=== PATIENT | male | born 1940 | race Caucasian/White ===

== ENCOUNTER 2017-01-25 20:39 | Inpatient (IN) | payer MEDICARE ==
[~2017-01-25] VITALS: Ht 177.8 cm; Wt 73.0 kg
[~2017-01-25 20:39] MED LIST: ASPI-496 PO; ASPI-621 PO; ATOR40TA PO; ATOR40TA78 PO; CLOP75TA22 PO; ETOMIDATE 40 MG/20 ML ONE; FAMO-79 PO; FAMO20TA7 PO; LEVO500T33 PO; NITR0.4T SL; NITR0.4T8 SL; PANT20TA2 PO; PANT40TA3 PO; PRED10TA PO; PRED20TA PO; PROPOFOL 10 MG/ML, 100ML IV ONE; RANI150T8 PO; SUCCINYLCHOLINE 20 MG/ML, 10ML ONE; TAMS-11 PO; VECURONIUM 10 MG ONE
[2017-01-25] MEDS ORDERED: SODIUM CHLORIDE 0.9% 1,000ML IVBOLUS ONE (21:00)
[2017-01-25] MEDS ORDERED: SODIUM CHLORIDE FLUSH 10ML SYR IVF ONE (21:00)
[2017-01-25] MEDS ORDERED: VECURONIUM 10 MG IVPush ONE (21:30)
[2017-01-25] MEDS ORDERED: PROPOFOL 100 ML IV PRN (21:30)
[2017-01-25] MEDS ORDERED: ETOMIDATE 20 MG/10 ML IVPush ONE (21:30)
[2017-01-25] MEDS ORDERED: CEFTRIAXONE PMX 1GM/50ML 50 ML IVPB ONE (21:30)
[2017-01-25] MEDS ORDERED: SUCCINYLCHOLINE 20 MG/ML, 10ML IVPush ONE (21:30)
[2017-01-25] MEDS ORDERED: AZITHROMYCIN 500 MG in SODIUM CHLORIDE 0.9% 250 ML IVPB ONE (21:30)
[2017-01-25] MEDS ORDERED: PLEASE ENTER HEIGHT AND WEIGHT MC SCH (21:30)
[2017-01-25] MEDS ORDERED: methylPREDNISolone SOD SUCC 125 MG/2 ML IVPush ONE (21:30)
[2017-01-25 21:46] LABS: ASPARTATE AMINO TRANSFERASE 21 U/L (15-37); BLOOD UREA NITROGEN 33 mg/dL (7-18)
[2017-01-25] MEDS ORDERED: CEFTRIAXONE PMX 1GM/50ML 50 ML ONE (21:47)
[2017-01-25 21:48] LABS: DIFF TOTAL CELLS COUNTED 100 CELL DIFF
[2017-01-25 21:51] LABS: IS PT STATUS REG ER OR PRE ER? YES
[2017-01-25 21:52] LABS: VERIFY COUNTS? YES
[2017-01-25] MEDS ORDERED: methylPREDNISolone SOD SUCC 125 MG/2 ML ONE (21:55)
[2017-01-25 22:26] LABS: ABG COLLECTION SITE LEFT RADIAL; COLLATERAL CIRCULATION TESTING NORMAL
[2017-01-25] MEDS ORDERED: DEXTROSE 50%, 50ML SYRINGE IVPush PRN (22:30)
[2017-01-25] MEDS ORDERED: SODIUM CHLORIDE 0.9%, 500ML IV ONE (22:30)
[2017-01-25] MEDS: ALBUTEROL/IPRATROPIUM 2.5MG/0.5MG, 3 ML INLINE SCH (22:30)
[2017-01-25] MEDS ORDERED: VASOPRESSIN 100 UNIT in SODIUM CHLORIDE 0.9% 495 ML IV PRN (22:30)
[2017-01-25] MEDS ORDERED: LIDOCAINE-MPF 1%, 2ML ENDO PRN (22:30)
[2017-01-25] MEDS ORDERED: GLUCAGON 1 MG IM PRN (22:30)
[2017-01-25] MEDS ORDERED: PHARMACY MAY ADJ FOR RENAL FX MC SCH (22:30)
[2017-01-25 22:52] VITALS: BP 113/68
[2017-01-25] MEDS ORDERED: PHARMACOKINETIC MONITORING MC PRN (23:00)
[2017-01-25] MEDS ORDERED: HEPARIN 5,000 UNITS/ML, 1ML SQ SCH (23:00)
[2017-01-25] MEDS ORDERED: VANCOMYCIN 1,600 MG in SODIUM CHLORIDE 0.9% 250 ML IV ONE (23:00)
[2017-01-25] MEDS ORDERED: VANCOMYCIN PER PHARMACY MC PRN (23:00)
[2017-01-26] MEDS: NOREPINEPHRINE 4 MG in SODIUM CHLORIDE 0.9% 246 ML IV PRN ×3 (00:15→04:49)
[2017-01-26 00:16] LABS: ABG COLLECTION SITE RIGHT RADIAL; COLLATERAL CIRCULATION TESTING NORMAL
[2017-01-26] MEDS: FENTANYL PF 100 MCG/2ML IVPush PRN ×2 (00:26→05:23)
[2017-01-26] MEDS ORDERED: MAGNESIUM SULFATE PMX 2GM/50ML 50 ML IV ONE (01:00)
[2017-01-26] MEDS ORDERED: SODIUM CHLORIDE 0.9% 1,000ML IVBOLUS ONE ×2 (01:30→04:30)
[2017-01-26] MEDS: PROPOFOL 100 ML IV PRN ×3 (01:45→22:43)
[2017-01-26] MEDS ORDERED: ONDANSETRON 2MG/ML, 2ML IVPush PRN (02:00)
[2017-01-26] MEDS ORDERED: [UNRECOGNIZED DRUG - REMARK] XX PRN ×2 (02:00)
[2017-01-26] MEDS ORDERED: SODIUM CHLORIDE 0.9% 1,000 ML IV SCH (02:00)
[2017-01-26] MEDS: ALBUTEROL/IPRATROPIUM 2.5MG/0.5MG, 3 ML INLINE SCH ×6 (02:19→21:56)
[2017-01-26] MEDS ORDERED: SODIUM BICARBONATE 1 MEQ/ML, 50ML VIAL IVPush STA ×2 (02:56→04:51)
[2017-01-26] MEDS: MEROPENEM 1 GM in SODIUM CHLORIDE 0.9% 100 ML IV SCH ×2 (03:00→15:47)
[2017-01-26] MEDS: PANTOPRAZOLE 40 MG IV IVPush SCH ×2 (03:00→15:47)
[2017-01-26 04:00] VITALS: BP 90/59
[2017-01-26 04:28] LABS: ASPARTATE AMINO TRANSFERASE 347 U/L (15-37); BLOOD UREA NITROGEN 32 mg/dL (7-18)
[2017-01-26 04:32] LABS: IS PT STATUS REG ER OR PRE ER? NO
[2017-01-26] MEDS: methylPREDNISolone SOD SUCC 125 MG/2 ML IVPush SCH ×3 (04:50→21:35)
[2017-01-26] MEDS ORDERED: HEPARIN 5,000 UNITS/ML, 1ML IV ONE (05:00)
[2017-01-26 05:11] LABS: DIFF TOTAL CELLS COUNTED 100 CELL DIFF
[2017-01-26 05:13] LABS: VERIFY COUNTS? YES
[2017-01-26] MEDS: HEPARIN 25,000 UNITS/500ML PMX 500 ML IV PRN (05:30)
[2017-01-26] MEDS: SODIUM BICARBONATE 8.4% 100 MEQ in DEXTROSE 5% 1,000 ML IV SCH ×2 (06:17→19:17)
[2017-01-26] MEDS: NOREPINEPHRINE 8 MG in SODIUM CHLORIDE 0.9% 242 ML IV PRN ×3 (07:37→22:34)
[2017-01-26 08:15] LABS: ABG COLLECTION SITE LEFT BRACHIAL; COLLATERAL CIRCULATION TESTING NORMAL
[2017-01-26 08:27] LABS: BLOOD UREA NITROGEN 34 mg/dL (7-18)
[2017-01-26] MEDS ORDERED: CEFTRIAXONE PMX 2GM/50ML 50 ML IV SCH (10:00)
[2017-01-26 12:08] LABS: IS PT STATUS REG ER OR PRE ER? NO
[2017-01-26] MEDS: LINEZOLID PMX 600MG/300ML 300 ML IV SCH ×2 (12:10→21:36)
[2017-01-26] MEDS: HEPARIN 5,000 UNITS/ML, 1ML IV PRN (21:27)
[2017-01-27] MEDS: MIDAZOLAM 1 MG/ML, 2ML IVPush PRN ×2 (00:10→06:24)
[2017-01-27] MEDS: ALBUTEROL/IPRATROPIUM 2.5MG/0.5MG, 3 ML INLINE SCH ×6 (02:00→22:00)
[2017-01-27] MEDS: PANTOPRAZOLE 40 MG IV IVPush SCH ×2 (02:12→15:20)
[2017-01-27] MEDS: MEROPENEM 1 GM in SODIUM CHLORIDE 0.9% 100 ML IV SCH ×2 (02:13→13:24)
[2017-01-27] MEDS: SODIUM CHLORIDE 0.9% 1,000 ML IV SCH ×3 (02:13→19:42)
[2017-01-27 04:03] LABS: ABG COLLECTION SITE LEFT RADIAL; COLLATERAL CIRCULATION TESTING NORMAL
[2017-01-27 04:13] LABS: BLOOD UREA NITROGEN 40 mg/dL (7-18)
[2017-01-27] MEDS: SODIUM BICARBONATE 8.4% 100 MEQ in DEXTROSE 5% 1,000 ML IV SCH ×2 (04:16→15:20)
[2017-01-27 05:07] VITALS: BP 105/70
[2017-01-27] MEDS: HEPARIN 25,000 UNITS/500ML PMX 500 ML IV PRN (05:24)
[2017-01-27] MEDS: methylPREDNISolone SOD SUCC 125 MG/2 ML IVPush SCH ×3 (05:25→22:09)
[2017-01-27] MEDS: FENTANYL PF 100 MCG/2ML IVPush PRN (06:24)
[2017-01-27] MEDS: PROPOFOL 100 ML IV PRN ×2 (10:02→22:09)
[2017-01-27] MEDS: RISPERIDONE 0.5 MG TABLET PO SCH ×2 (10:02→22:09)
[2017-01-27 10:07] LABS: IS PT STATUS REG ER OR PRE ER? NO
[2017-01-27] MEDS: LINEZOLID PMX 600MG/300ML 300 ML IV SCH ×2 (10:37→22:10)
[2017-01-27] MEDS ORDERED: LIDOCAINE 1%, 20ML ONE (19:35)
[2017-01-27] MEDS: NOREPINEPHRINE 8 MG in SODIUM CHLORIDE 0.9% 242 ML IV PRN (22:10)
[2017-01-27] MEDS ORDERED: VANCOMYCIN 1,500 MG in SODIUM CHLORIDE 0.9% 250 ML IV SCH (23:00)
[2017-01-28] MEDS: HEPARIN 5,000 UNITS/ML, 1ML IV PRN (00:41)
[2017-01-28] MEDS: ALBUTEROL/IPRATROPIUM 2.5MG/0.5MG, 3 ML INLINE SCH ×6 (01:50→22:14)
[2017-01-28] MEDS: PANTOPRAZOLE 40 MG IV IVPush SCH ×2 (02:56→13:25)
[2017-01-28] MEDS: MEROPENEM 1 GM in SODIUM CHLORIDE 0.9% 100 ML IV SCH ×2 (02:57→13:28)
[2017-01-28] MEDS: SODIUM BICARBONATE 8.4% 100 MEQ in DEXTROSE 5% 1,000 ML IV SCH (02:57)
[2017-01-28 04:00] VITALS: BP 110/62
[2017-01-28 04:36] LABS: ABG COLLECTION SITE LEFT RADIAL; COLLATERAL CIRCULATION TESTING NORMAL
[2017-01-28 04:58] LABS: BLOOD UREA NITROGEN 36 mg/dL (7-18)
[2017-01-28] MEDS: methylPREDNISolone SOD SUCC 125 MG/2 ML IVPush SCH ×3 (05:40→21:01)
[2017-01-28] MEDS: SODIUM CHLORIDE 0.9% 1,000 ML IV SCH ×3 (05:40→22:55)
[2017-01-28 06:24] VITALS: BP 110/62
[2017-01-28] MEDS: RISPERIDONE 0.5 MG TABLET PO SCH ×2 (09:25→21:00)
[2017-01-28] MEDS: PROPOFOL 100 ML IV PRN ×2 (13:19→21:01)
[2017-01-28] MEDS: HEPARIN 25,000 UNITS/500ML PMX 500 ML IV PRN (13:21)
[2017-01-28] MEDS: MIDAZOLAM 1 MG/ML, 2ML IVPush PRN (16:11)
[2017-01-28] MEDS: FENTANYL PF 100 MCG/2ML IVPush PRN (22:13)
[2017-01-29] MEDS: ALBUTEROL/IPRATROPIUM 2.5MG/0.5MG, 3 ML INLINE SCH ×6 (01:55→22:30)
[2017-01-29] MEDS: MEROPENEM 1 GM in SODIUM CHLORIDE 0.9% 100 ML IV SCH ×2 (02:03→14:51)
[2017-01-29] MEDS: PANTOPRAZOLE 40 MG IV IVPush SCH ×2 (02:03→14:52)
[2017-01-29 03:50] VITALS: BP 107/55
[2017-01-29 04:33] LABS: ABG COLLECTION SITE RIGHT RADIAL; COLLATERAL CIRCULATION TESTING NORMAL
[2017-01-29 04:54] LABS: BLOOD UREA NITROGEN 40 mg/dL (7-18)
[2017-01-29] MEDS: methylPREDNISolone SOD SUCC 125 MG/2 ML IVPush SCH ×3 (06:44→23:45)
[2017-01-29] MEDS: SODIUM CHLORIDE 0.9% 1,000 ML IV SCH ×2 (09:27→18:24)
[2017-01-29] MEDS: RISPERIDONE 0.5 MG TABLET PO SCH ×2 (09:30→20:57)
[2017-01-29] MEDS: FENTANYL PF 100 MCG/2ML IVPush PRN ×4 (12:56→20:57)
[2017-01-29] MEDS: PROPOFOL 100 ML IV PRN (15:07)
[2017-01-30] MEDS: ALBUTEROL/IPRATROPIUM 2.5MG/0.5MG, 3 ML INLINE SCH ×3 (02:21→10:50)
[2017-01-30] MEDS: MEROPENEM 1 GM in SODIUM CHLORIDE 0.9% 100 ML IV SCH ×2 (04:24→15:25)
[2017-01-30] MEDS: PANTOPRAZOLE 40 MG IV IVPush SCH ×2 (04:24→15:04)
[2017-01-30] MEDS: FENTANYL PF 100 MCG/2ML IVPush PRN (04:59)
[2017-01-30 05:13] LABS: ABG COLLECTION SITE LEFT RADIAL; COLLATERAL CIRCULATION TESTING NORMAL
[2017-01-30 05:21] LABS: BLOOD UREA NITROGEN 47 mg/dL (7-18)
[2017-01-30 05:49] VITALS: BP 117/66
[2017-01-30] MEDS: methylPREDNISolone SOD SUCC 125 MG/2 ML IVPush SCH (06:46)
[2017-01-30] MEDS ORDERED: ALBUMIN HUMAN 25% 100 ML IV ONE ×3 (07:00→21:00)
[2017-01-30] MEDS ORDERED: FUROSEMIDE 20 MG/2 ML IV SCH (08:00)
[2017-01-30] MEDS: RISPERIDONE 0.5 MG TABLET PO SCH ×2 (08:41→20:51)
[2017-01-30] MEDS ORDERED: INSULIN REGULAR, HUMAN 100 UNIT/ML 3ML VIAL LOW DOSE SS SQ-INSULIN SCH (11:00)
[2017-01-30] MEDS: ALBUTEROL/IPRATROPIUM 2.5MG/0.5MG, 3 ML NPPB SCH ×3 (13:30→19:28)
[2017-01-30] MEDS: INSULIN REGULAR 100 UNITS/ML, 3ML VIAL SQ-INSULIN SCH ×2 (16:57→20:47)
[2017-01-30] MEDS ORDERED: FUROSEMIDE 20 MG/2 ML IV ONE ×2 (17:00→21:00)
[2017-01-30] MEDS: methylPREDNISolone SOD SUCC 40 MG/ML IVPush SCH (18:34)
[2017-01-31] MEDS: ALBUTEROL/IPRATROPIUM 2.5MG/0.5MG, 3 ML NPPB SCH ×6 (00:16→22:00)
[2017-01-31] MEDS: MEROPENEM 1 GM in SODIUM CHLORIDE 0.9% 100 ML IV SCH ×2 (02:06→14:14)
[2017-01-31] MEDS: PANTOPRAZOLE 40 MG IV IVPush SCH ×2 (02:10→14:13)
[2017-01-31 04:00] VITALS: BP 123/58
[2017-01-31 04:12] LABS: ABG COLLECTION SITE RIGHT RADIAL; COLLATERAL CIRCULATION TESTING NORMAL
[2017-01-31 04:28] LABS: BLOOD UREA NITROGEN 48 mg/dL (7-18)
[2017-01-31 06:17] LABS: DIFF TOTAL CELLS COUNTED 100 CELL DIFF
[2017-01-31 06:19] LABS: VERIFY COUNTS? YES
[2017-01-31 06:21] LABS: LARGE PLATELETS 1+
[2017-01-31] MEDS: methylPREDNISolone SOD SUCC 40 MG/ML IVPush SCH (06:40)
[2017-01-31] MEDS: INSULIN REGULAR 100 UNITS/ML, 3ML VIAL SQ-INSULIN SCH ×4 (06:47→20:54)
[2017-01-31] MEDS: RISPERIDONE 0.5 MG TABLET PO SCH (09:27)
[2017-01-31] MEDS: ALBUMIN HUMAN 25% 100 ML IV SCH ×2 (09:27→20:30)
[2017-01-31] MEDS ORDERED: SENNOSIDES 8.8 MG/5 ML ORAL SOL PO PRN (09:30)
[2017-01-31] MEDS: POLYETHYLENE GLYCOL 17 GM PACKET PO SCH (10:33)
[2017-01-31] MEDS: DOCUSATE 100 MG CAPSULE PO SCH ×2 (10:33→20:50)
[2017-01-31] MEDS: FUROSEMIDE 20 MG/2 ML IV SCH ×2 (11:29→21:50)
[2017-01-31] MEDS ORDERED: IRON DEXTRAN IV PER PHARMACY IV PRN (12:00)
[2017-01-31] MEDS ORDERED: IRON DEXTRAN COMPLEX 25 MG in SODIUM CHLORIDE 0.9% 50 ML IV ONE (12:00)
[2017-01-31] MEDS ORDERED: EPINEPHRINE 1 MG/ML, 1ML IM PRN (12:00)
[2017-01-31] MEDS ORDERED: IRON DEXTRAN COMPLEX 1,550 MG in SODIUM CHLORIDE 0.9% 250 ML IV ONE (14:00)
[2017-01-31] MEDS ORDERED: EPINEPHRINE SYRINGE 0.1 MG/ML, 10ML ONE (14:51)
[2017-02-01] MEDS: MEROPENEM 1 GM in SODIUM CHLORIDE 0.9% 100 ML IV SCH ×2 (01:26→14:11)
[2017-02-01] MEDS: PANTOPRAZOLE 40 MG IV IVPush SCH (01:26)
[2017-02-01] MEDS: ALBUTEROL/IPRATROPIUM 2.5MG/0.5MG, 3 ML NPPB SCH ×3 (02:00→10:00)
[2017-02-01 03:00] VITALS: BP 120/63
[2017-02-01 04:36] LABS: ABG COLLECTION SITE RIGHT RADIAL
[2017-02-01 04:37] LABS: COLLATERAL CIRCULATION TESTING NORMAL
[2017-02-01 04:59] LABS: BLOOD UREA NITROGEN 44 mg/dL (7-18)
[2017-02-01] MEDS: INSULIN REGULAR 100 UNITS/ML, 3ML VIAL SQ-INSULIN SCH ×4 (07:00→21:17)
[2017-02-01] MEDS: DOCUSATE 100 MG CAPSULE PO SCH ×2 (07:43→20:52)
[2017-02-01] MEDS: POLYETHYLENE GLYCOL 17 GM PACKET PO SCH (07:43)
[2017-02-01] MEDS ORDERED: methylPREDNISolone SOD SUCC 40 MG/ML IVPush SCH (09:00)
[2017-02-01] MEDS: FUROSEMIDE 20 MG/2 ML IV SCH ×2 (09:55→22:47)
[2017-02-01] MEDS: ALBUMIN HUMAN 25% 100 ML IV SCH ×2 (09:55→20:52)
[2017-02-01] MEDS ORDERED: ALBUTEROL/IPRATROPIUM 2.5MG/0.5MG, 3 ML ONE ×2 (10:46→14:35)
[2017-02-01] MEDS ORDERED: ALBUTEROL/IPRATROPIUM 2.5MG/0.5MG, 3 ML NPPB SCH (11:00)
[2017-02-01 13:50] VITALS: BP 124/69
[2017-02-01] MEDS: ALBUTEROL SULFATE 2.5 MG/3 ML NPPB SCH ×2 (16:00→20:11)
[2017-02-01 19:37] VITALS: BP 115/15
[2017-02-02] MEDS: MEROPENEM 1 GM in SODIUM CHLORIDE 0.9% 100 ML IV SCH ×2 (03:25→15:31)
[2017-02-02 05:49] LABS: ASPARTATE AMINO TRANSFERASE 57 U/L (15-37); BLOOD UREA NITROGEN 43 mg/dL (7-18)
[2017-02-02] MEDS: ALBUTEROL SULFATE 2.5 MG/3 ML NPPB SCH ×4 (06:00→20:10)
[2017-02-02 08:00] VITALS: BP 115/48
[2017-02-02] MEDS: DOCUSATE 100 MG CAPSULE PO SCH ×2 (08:04→21:00)
[2017-02-02] MEDS: POLYETHYLENE GLYCOL 17 GM PACKET PO SCH (08:05)
[2017-02-02] MEDS: PANTOPROZOLE 40MG TABLET PO SCH (08:16)
[2017-02-02] MEDS: INSULIN REGULAR 100 UNITS/ML, 3ML VIAL SQ-INSULIN SCH ×4 (08:17→21:00)
[2017-02-02 17:03] VITALS: BP 108/55
[2017-02-02 21:02] VITALS: BP 105/59
[2017-02-02] MEDS: TEMAZEPAM 15 MG CAPSULE PO PRN (21:34)
[2017-02-03] MEDS: MEROPENEM 1 GM in SODIUM CHLORIDE 0.9% 100 ML IV SCH ×2 (03:07→18:47)
[2017-02-03 03:29] VITALS: BP 125/63
[2017-02-03 05:22] LABS: BLOOD UREA NITROGEN 42 mg/dL (7-18)
[2017-02-03 05:26] LABS: ASPARTATE AMINO TRANSFERASE 38 U/L (15-37)
[2017-02-03] MEDS: ALBUTEROL SULFATE 2.5 MG/3 ML NPPB SCH ×4 (08:00→19:25)
[2017-02-03] MEDS: INSULIN REGULAR 100 UNITS/ML, 3ML VIAL SQ-INSULIN SCH ×5 (08:44→20:25)
[2017-02-03] MEDS: PANTOPROZOLE 40MG TABLET PO SCH (08:47)
[2017-02-03] MEDS: POLYETHYLENE GLYCOL 17 GM PACKET PO SCH (08:49)
[2017-02-03] MEDS: DOCUSATE 100 MG CAPSULE PO SCH ×2 (08:49→20:25)
[2017-02-03 10:41] VITALS: BP 130/70
[2017-02-03] MEDS ORDERED: LIDOCAINE 1%, 20ML ONE (12:00)
[2017-02-03 12:16] LABS: IS PT STATUS REG ER OR PRE ER? NO
[2017-02-03] MEDS ORDERED: FENTANYL PF 100 MCG/2ML ONE (13:09)
[2017-02-03] MEDS ORDERED: MIDAZOLAM 1 MG/ML, 5ML ONE (13:09)
[2017-02-03] MEDS ORDERED: NALOXONE 1 MG/ML, 2ML ONE (13:09)
[2017-02-03] MEDS ORDERED: FLUMAZENIL 0.1 MG/1 ML, 5ML ONE (13:09)
[2017-02-03] MEDS ORDERED: VISIPAQUE 270 MG/ML, 50ML BOTTLE ONE (14:04)
[2017-02-03 18:00] VITALS: BP 121/72
[2017-02-03] MEDS: TEMAZEPAM 15 MG CAPSULE PO PRN (20:25)
[2017-02-04 01:25] VITALS: BP 136/76
[2017-02-04] MEDS: MEROPENEM 1 GM in SODIUM CHLORIDE 0.9% 100 ML IV SCH (06:12)
[2017-02-04] MEDS: INSULIN REGULAR 100 UNITS/ML, 3ML VIAL SQ-INSULIN SCH ×4 (07:00→22:07)
[2017-02-04 07:30] VITALS: BP 115/68
[2017-02-04] MEDS: ALBUTEROL SULFATE 2.5 MG/3 ML NPPB SCH ×4 (07:30→19:00)
[2017-02-04] MEDS: DOCUSATE 100 MG CAPSULE PO SCH ×2 (08:23→22:01)
[2017-02-04] MEDS: PANTOPROZOLE 40MG TABLET PO SCH (08:23)
[2017-02-04] MEDS: POLYETHYLENE GLYCOL 17 GM PACKET PO SCH (08:24)
[2017-02-04] MEDS: ACETAMINOPHEN 325 MG TABLET PO PRN ×2 (11:03→18:10)
[2017-02-04 15:06] VITALS: BP 119/68
[2017-02-04] MEDS ORDERED: FUROSEMIDE 40 MG/4 ML IV ONE (16:00)
[2017-02-04 19:49] VITALS: BP 123/74
[2017-02-04] MEDS: TEMAZEPAM 15 MG CAPSULE PO PRN (22:01)
[2017-02-04] MEDS: TICAGRELOR 90 MG TABLET PO SCH (22:01)
[2017-02-05 02:04] VITALS: BP 108/55
[2017-02-05] MEDS: ACETAMINOPHEN 325 MG TABLET PO PRN ×2 (02:17→20:58)
[2017-02-05] MEDS: ASPIRIN 81 MG TABLET EC PO SCH (06:09)
[2017-02-05] MEDS: ALBUTEROL SULFATE 2.5 MG/3 ML NPPB SCH ×3 (06:58→16:00)
[2017-02-05] MEDS: INSULIN REGULAR 100 UNITS/ML, 3ML VIAL SQ-INSULIN SCH ×4 (07:00→20:59)
[2017-02-05 07:07] LABS: ASPARTATE AMINO TRANSFERASE 29 U/L (15-37); BLOOD UREA NITROGEN 46 mg/dL (7-18)
[2017-02-05] MEDS: PANTOPROZOLE 40MG TABLET PO SCH (09:37)
[2017-02-05] MEDS: TICAGRELOR 90 MG TABLET PO SCH ×2 (09:38→20:57)
[2017-02-05] MEDS: DOCUSATE 100 MG CAPSULE PO SCH ×2 (09:38→20:58)
[2017-02-05] MEDS: POLYETHYLENE GLYCOL 17 GM PACKET PO SCH (09:38)
[2017-02-05 12:00] VITALS: BP 93/58
[2017-02-05] MEDS ORDERED: SODIUM CHLORIDE 0.9% 500 ML IV SCH (12:00)
[2017-02-05 14:26] VITALS: BP 122/72
[2017-02-05] MEDS ORDERED: MIDAZOLAM 1 MG/ML, 5ML ONE (14:46)
[2017-02-05] MEDS ORDERED: FENTANYL PF 100 MCG/2ML ONE (14:46)
[2017-02-05] MEDS ORDERED: HEPARIN 1,000 UNITS/ML, 10ML ONE (14:47)
[2017-02-05] MEDS ORDERED: BIVALIRUDIN 250 MG ONE (14:47)
[2017-02-05] MEDS ORDERED: VERAPAMIL 2.5 MG/ML, 2ML ONE (14:47)
[2017-02-05] MEDS ORDERED: LIDOCAINE 2%, 20ML ONE (14:47)
[2017-02-05 20:00] VITALS: BP 96/55
[2017-02-05] MEDS: TEMAZEPAM 15 MG CAPSULE PO PRN (20:58)
[2017-02-06 01:12] VITALS: BP 115/68
[2017-02-06 03:45] LABS: BLOOD UREA NITROGEN 47 mg/dL (7-18)
[2017-02-06 03:49] LABS: ASPARTATE AMINO TRANSFERASE 32 U/L (15-37)
[2017-02-06] MEDS: ASPIRIN 81 MG TABLET EC PO SCH (05:35)
[2017-02-06] MEDS: ALBUTEROL SULFATE 2.5 MG/3 ML NPPB SCH ×4 (07:12→14:15)
[2017-02-06 07:49] VITALS: BP 103/59
[2017-02-06] MEDS: INSULIN REGULAR 100 UNITS/ML, 3ML VIAL SQ-INSULIN SCH ×2 (08:00→11:11)
[2017-02-06] MEDS: DOCUSATE 100 MG CAPSULE PO SCH (08:23)
[2017-02-06] MEDS: TICAGRELOR 90 MG TABLET PO SCH (08:23)
[2017-02-06] MEDS: PANTOPROZOLE 40MG TABLET PO SCH (08:23)
[2017-02-06] MEDS: POLYETHYLENE GLYCOL 17 GM PACKET PO SCH (08:24)
[2017-02-06] MEDS: ACETAMINOPHEN 325 MG TABLET PO PRN (11:17)
[2017-02-06] MEDS ORDERED: PRED20TA PO (11:24)
[2017-02-06] MEDS ORDERED: ACET325T14 PO (11:24)
[2017-02-06] MEDS ORDERED: CARV3.1212 PO (11:24)
[2017-02-06] MEDS ORDERED: DOCU-30 PO (11:24)
[2017-02-06] MEDS ORDERED: POLY17PO5 PO (11:24)
[2017-02-06] MEDS ORDERED: TEMA15CA6 PO (11:24)
[2017-02-06] MEDS ORDERED: TICA90TA PO (11:24)
[2017-02-06 14:00] VITALS: BP 96/61
[2017-02-06] MEDS ORDERED: CARVEDILOL 3.125 MG TABLET PO SCH (18:00)
== END 2017-02-06 19:22 | DRG 870 ==
LOC: EDBD 20:39 → MERGE 20:39 → ED 21:37 → EDIP 22:00 → CCU 22:31 → 5SO 02-01 13:47
PROVIDERS: ADMIT Internal Medicine; ATTEND Internal Medicine
PROC: 5A1955Z Respiratory Ventilation, Greater than 96 Consecutive Hours (ICD-10-PCS; principal; 2017-01-25)
PROC: 0BH17EZ Insertion of Endotracheal Airway into Trachea, Via Natural or Artificial Opening (ICD-10-PCS; 2017-01-25)
PROC: 0T9B70Z Drainage of Bladder with Drainage Device, Via Natural or Artificial Opening (ICD-10-PCS; 2017-01-25)
PROC: 0T9030Z Drainage of Right Kidney with Drainage Device, Percutaneous Approach (ICD-10-PCS; 2017-01-27)
PROC: 0BC18ZZ Extirpation of Matter from Trachea, Via Natural or Artificial Opening Endoscopic (ICD-10-PCS; 2017-01-29)
PROC: BT111ZZ Fluoroscopy of Right Kidney using Low Osmolar Contrast (ICD-10-PCS; 2017-02-03)
PROC: 0T767DZ Dilation of Right Ureter with Intraluminal Device, Via Natural or Artificial Opening (ICD-10-PCS; 2017-02-03)
PROC: 03HY32Z Insertion of Monitoring Device into Upper Artery, Percutaneous Approach (ICD-10-PCS; 2017-02-05)
PROC: 4A023N7 Measurement of Cardiac Sampling and Pressure, Left Heart, Percutaneous Approach (ICD-10-PCS; 2017-02-05)
PROC: B2111ZZ Fluoroscopy of Multiple Coronary Arteries using Low Osmolar Contrast (ICD-10-PCS; 2017-02-05)
PROC: B2151ZZ Fluoroscopy of Left Heart using Low Osmolar Contrast (ICD-10-PCS; 2017-02-05)
DX: A41.9 Sepsis, unspecified organism (principal); J96.21 Acute and chronic respiratory failure with hypoxia; I50.21 Acute systolic (congestive) heart failure; I21.4 Non-ST elevation (NSTEMI) myocardial infarction; J18.9 Pneumonia, unspecified organism; J96.22 Acute and chronic respiratory failure with hypercapnia; R65.21 Severe sepsis with septic shock; N13.30 Unspecified hydronephrosis; E87.2 Acidosis; J44.0 Chronic obstructive pulmonary disease with (acute) lower respiratory infection; N17.9 Acute kidney failure, unspecified; Z95.5 Presence of coronary angioplasty implant and graft; I25.10 Atherosclerotic heart disease of native coronary artery without angina pectoris; I25.2 Old myocardial infarction; K44.9 Diaphragmatic hernia without obstruction or gangrene; K21.9 Gastro-esophageal reflux disease without esophagitis; C67.9 Malignant neoplasm of bladder, unspecified; D50.9 Iron deficiency anemia, unspecified; D63.8 Anemia in other chronic diseases classified elsewhere; E78.00 Pure hypercholesterolemia, unspecified; E78.5 Hyperlipidemia, unspecified; I11.0 Hypertensive heart disease with heart failure; I25.5 Ischemic cardiomyopathy; I71.4 Abdominal aortic aneurysm, without rupture; J84.112 Idiopathic pulmonary fibrosis; R74.0 Nonspecific elevation of levels of transaminase and lactic acid dehydrogenase [LDH]; R45.1 Restlessness and agitation; J44.9 Chronic obstructive pulmonary disease, unspecified; N13.5 Crossing vessel and stricture of ureter without hydronephrosis; R31.9 Hematuria, unspecified; T17.990A Other foreign object in respiratory tract, part unspecified in causing asphyxiation, initial encounter; Z51.5 Encounter for palliative care; Z88.0 Allergy status to penicillin; Z88.1 Allergy status to other antibiotic agents; Y93.89 Activity, other specified; Y92.89 Other specified places as the place of occurrence of the external cause; Y99.8 Other external cause status; Z79.899 Other long term (current) drug therapy; Z79.82 Long term (current) use of aspirin; Z82.49 Family history of ischemic heart disease and other diseases of the circulatory system; Z85.46 Personal history of malignant neoplasm of prostate; Z85.51 Personal history of malignant neoplasm of bladder; Z86.12 Personal history of poliomyelitis; Z87.891 Personal history of nicotine dependence; Z92.21 Personal history of antineoplastic chemotherapy; Z99.81 Dependence on supplemental oxygen; Z90.89 Acquired absence of other organs; Z90.79 Acquired absence of other genital organ(s)
CPT/HCPCS: 31500; 31624; 36415; 36600; 50432; 50693; 51702; 71010; 74176; 76770; 76937; 80048; 80053; 80202; 81001; 82040; 82330; 82533; 82803; 82962; 83605; 83735; 83880; 84100; 84145; 84478; 84484; 85014; 85018; 85025; 85520; 85610; 85651; 85730; 86140; 87040; 87070; 87077; 87081; 87086; 87186; 87205; 93005; 93458; 94002; 94003; 94150; 94640; 96365; 96375; 99156; 99157; C1894; C8929; J0456; J0583; J0696; J1644; J1750; J1815; J1940; J2020; J2185; J2250; J2704; J3010; J3370; J3490; J7070; J7613; J7620; P9047; Q9966; C1729; C1751; C1769; C2625; C9113; J0330; J2310; J2920; J2930; J3475; J7030; J7040; J7050; J7512; Q9967

== ENCOUNTER 2017-02-11 19:36 | Emergency (ER) | payer MEDICARE ==
[~2017-02-11] VITALS: Ht 170.2 cm; Wt 70.0 kg
[~2017-02-11 19:36] MED LIST changes: +ACET325T14 PO; +CARV3.1212 PO; +DOCU-30 PO; -ETOMIDATE 40 MG/20 ML ONE; +POLY17PO5 PO; -PROPOFOL 10 MG/ML, 100ML IV ONE; -SUCCINYLCHOLINE 20 MG/ML, 10ML ONE; +TEMA15CA6 PO; +TICA90TA PO; -VECURONIUM 10 MG ONE
[2017-02-11 22:15] VITALS: BP 121/62
[2017-02-11] MEDS ORDERED: CIPROFLOXACIN 500 MG TABLET PO ONE (23:00)
[2017-02-12] MEDS ORDERED: CIPROFLOXACIN 500 MG TABLET ONE (00:09)
== END 2017-02-12 00:51 | disposition home or self-care (01) ==
LOC: ED 02-12 00:45
DX: N30.01 Acute cystitis with hematuria (principal); R33.9 Retention of urine, unspecified; N40.0 Benign prostatic hyperplasia without lower urinary tract symptoms; E78.00 Pure hypercholesterolemia, unspecified; I25.10 Atherosclerotic heart disease of native coronary artery without angina pectoris; I25.2 Old myocardial infarction
CPT/HCPCS: 51702; 74000; 81001; 87086; 99285

== ENCOUNTER 2017-02-22 11:52 | Inpatient (IN) | payer MEDICARE ==
[~2017-02-22] VITALS: Ht 170.2 cm; Wt 69.1 kg
[2017-02-22] MEDS ORDERED: SODIUM CHLORIDE FLUSH 10ML SYR IVF ONE (12:30)
[2017-02-22 12:36] LABS: ABG COLLECTION SITE NOT DOCUMENTED
[2017-02-22 12:47] LABS: BLOOD UREA NITROGEN 29 mg/dL (7-18)
[2017-02-22 12:52] LABS: ASPARTATE AMINO TRANSFERASE 20 U/L (15-37)
[2017-02-22 12:53] LABS: IS PT STATUS REG ER OR PRE ER? YES
[2017-02-22] MEDS ORDERED: CIPR500T87 PO (13:22)
[2017-02-22] MEDS ORDERED: OMEP-110 PO (13:22)
[2017-02-22] MEDS ORDERED: TRAM50TA2 PO (13:22)
[2017-02-22] MEDS ORDERED: OXYB5TAB7 PO (13:22)
[2017-02-22] MEDS ORDERED: ALBUTEROL/IPRATROPIUM 2.5MG/0.5MG, 3 ML ONE (13:48)
[2017-02-22] MEDS ORDERED: methylPREDNISolone SOD SUCC 125 MG/2 ML ONE (13:58)
[2017-02-22] MEDS ORDERED: ALBUTEROL/IPRATROPIUM 2.5MG/0.5MG, 3 ML NPPB ONE (14:00)
[2017-02-22] MEDS ORDERED: methylPREDNISolone SOD SUCC 125 MG/2 ML IVPush ONE (14:00)
[2017-02-22] MEDS ORDERED: LOPERAMIDE 2 MG CAPSULE PO ONE (15:30)
[2017-02-22] MEDS ORDERED: TEMAZEPAM 15 MG CAPSULE PO PRN (15:30)
[2017-02-22] MEDS ORDERED: ACETAMINOPHEN 325 MG TABLET PO PRN (15:30)
[2017-02-22 16:04] VITALS: BP 90/55
[2017-02-22] MEDS: CARVEDILOL 3.125 MG TABLET PO SCH (17:26)
[2017-02-22 20:00] VITALS: BP 106/67
[2017-02-22] MEDS: ALBUTEROL/IPRATROPIUM 2.5MG/0.5MG, 3 ML NPPB SCH (20:00)
[2017-02-22] MEDS: OXYBUTYNIN CHLORIDE 5 MG TABLET PO SCH (20:25)
[2017-02-22] MEDS: TICAGRELOR 90 MG TABLET PO SCH (21:00)
[2017-02-22] MEDS: MORPHINE SULFATE 4 MG/ML, 1ML IVPush PRN ×2 (21:36→22:46)
[2017-02-23] VITALS: BP 118/63
[2017-02-23] MEDS ORDERED: VANCOMYCIN PER PHARMACY MC PRN (02:30)
[2017-02-23] MEDS ORDERED: PHARMACOKINETIC MONITORING MC PRN (02:30)
[2017-02-23] MEDS ORDERED: SODIUM CHLORIDE 0.9% 1,000 ML IV SCH (02:30)
[2017-02-23] MEDS ORDERED: PHARMACOKINETIC CONSULTATION MC ONE (02:30)
[2017-02-23] MEDS: MORPHINE SULFATE 4 MG/ML, 1ML IVPush PRN ×3 (05:14→20:31)
[2017-02-23] MEDS: VANCOMYCIN 1,400 MG in SODIUM CHLORIDE 0.9% 250 ML IV SCH (05:15)
[2017-02-23] MEDS: CARVEDILOL 3.125 MG TABLET PO SCH ×2 (06:00→18:00)
[2017-02-23] MEDS: ALBUTEROL/IPRATROPIUM 2.5MG/0.5MG, 3 ML NPPB SCH ×4 (07:00→19:45)
[2017-02-23 07:40] LABS: ASPARTATE AMINO TRANSFERASE 16 U/L (15-37); BLOOD UREA NITROGEN 36 mg/dL (7-18)
[2017-02-23 07:47] VITALS: BP 111/86
[2017-02-23 07:48] LABS: DIFF TOTAL CELLS COUNTED 100 CELL DIFF
[2017-02-23 07:49] LABS: VERIFY COUNTS? YES
[2017-02-23 07:50] LABS: ANISOCYTOSIS 1+
[2017-02-23] MEDS ORDERED: LIDOCAINE GEL 2%, 5ML TP ONE (08:30)
[2017-02-23] MEDS: TICAGRELOR 90 MG TABLET PO SCH ×2 (08:52→12:01)
[2017-02-23] MEDS: OXYBUTYNIN CHLORIDE 5 MG TABLET PO SCH ×2 (08:59→20:10)
[2017-02-23] MEDS: ASPIRIN 81 MG TABLET EC PO SCH ×2 (09:00→12:01)
[2017-02-23] MEDS: methylPREDNISolone SOD SUCC 125 MG/2 ML IVPush SCH ×2 (12:01→20:09)
[2017-02-23 13:28] VITALS: BP 109/61
[2017-02-23] MEDS: LOPERAMIDE 2 MG CAPSULE PO PRN ×3 (14:22→23:13)
[2017-02-23] MEDS: metroNIDAZOLE 500 MG TABLET PO SCH ×2 (16:22→20:09)
[2017-02-23] MEDS: CIPROFLOXACIN 500 MG TABLET PO SCH (18:41)
[2017-02-23 19:27] VITALS: BP 115/56
[2017-02-23] MEDS: SODIUM CHLORIDE 0.9% 1,000 ML IV SCH (23:12)
[2017-02-24 01:53] VITALS: BP 122/75
[2017-02-24] MEDS: MORPHINE SULFATE 4 MG/ML, 1ML IVPush PRN ×5 (03:55→21:15)
[2017-02-24] MEDS: methylPREDNISolone SOD SUCC 125 MG/2 ML IVPush SCH ×3 (03:55→20:00)
[2017-02-24 05:13] VITALS: BP 101/67
[2017-02-24] MEDS: CARVEDILOL 3.125 MG TABLET PO SCH ×3 (05:13→17:21)
[2017-02-24 06:43] VITALS: BP 111/74
[2017-02-24] MEDS: ALBUTEROL/IPRATROPIUM 2.5MG/0.5MG, 3 ML NPPB SCH ×4 (07:50→18:50)
[2017-02-24] MEDS: metroNIDAZOLE 500 MG TABLET PO SCH ×3 (08:20→20:18)
[2017-02-24] MEDS: OXYBUTYNIN CHLORIDE 5 MG TABLET PO SCH ×2 (08:20→20:18)
[2017-02-24] MEDS: CIPROFLOXACIN 500 MG TABLET PO SCH ×2 (08:21→20:18)
[2017-02-24] MEDS: SODIUM CHLORIDE 0.9% 1,000 ML IV SCH (10:55)
[2017-02-24] MEDS ORDERED: EPINEPHRINE SYRINGE 0.1 MG/ML, 10ML ONE (11:47)
[2017-02-24] MEDS ORDERED: SODIUM BICARB 8.4%, 50ML SYRINGE ONE (11:47)
[2017-02-24] MEDS ORDERED: ROCURONIUM 10 MG/ML ONE (11:48)
[2017-02-24] MEDS ORDERED: ETOMIDATE 20 MG/10 ML ONE (11:48)
[2017-02-24 12:30] VITALS: BP 107/75
[2017-02-24] MEDS ORDERED: OXYBUTYNIN CHLORIDE 5 MG TABLET PO PRN (12:30)
[2017-02-24] MEDS ORDERED: SODIUM CHLORIDE NASAL SPRAY 45ML BOTTLE NAS PRN (13:00)
[2017-02-24] MEDS: OPIUM/BELLADONNA SUPP.RECT 16.2-30 MG PR PRN ×2 (17:16→23:57)
[2017-02-24] MEDS: VANCOMYCIN 1,400 MG in SODIUM CHLORIDE 0.9% 250 ML IV SCH (17:16)
[2017-02-24 19:32] VITALS: BP 102/68
[2017-02-25] MEDS ORDERED: PANTOPRAZOLE 40 MG IV IVPush SCH (01:30)
[2017-02-25] MEDS ORDERED: SODIUM CHLORIDE 0.9% 1,000 ML IV SCH (02:30)
[2017-02-25 02:37] LABS: DIFF TOTAL CELLS COUNTED 100 CELL DIFF
[2017-02-25 02:40] LABS: ANISOCYTOSIS 1+; POLYCHROMASIA 1+
[2017-02-25 03:31] LABS: ASPARTATE AMINO TRANSFERASE 149 U/L (15-37); BLOOD UREA NITROGEN 67 mg/dL (7-18)
[2017-02-25 03:46] LABS: VERIFY COUNTS? YES
[2017-02-25] MEDS ORDERED: CODE BLUE RESPONSE XX ONE (03:47)
[2017-02-25] MEDS ORDERED: SODIUM BICARB 8.4%, 50ML SYRINGE ONE (03:47)
[2017-02-25] MEDS ORDERED: EPINEPHRINE SYRINGE 0.1 MG/ML, 10ML ONE (03:47)
[2017-02-25] MEDS ORDERED: SODIUM CHLORIDE 0.9%, 250ML ONE (03:47)
[2017-02-25] MEDS ORDERED: NOREPINEPHRINE 1 MG/ML, 4ML ONE (03:47)
[2017-02-25 03:50] LABS: DIFF TOTAL CELLS COUNTED 100 CELL DIFF
[2017-02-25] MEDS ORDERED: VASOPRESSIN 100 UNIT in SODIUM CHLORIDE 0.9% 495 ML IV SCH (03:51)
[2017-02-25 03:52] LABS: ANISOCYTOSIS 1+; POLYCHROMASIA 1+; VERIFY COUNTS? YES
[2017-02-25 04:00] VITALS: BP 92/66
[2017-02-25] MEDS ORDERED: NOREPINEPHRINE 4 MG in SODIUM CHLORIDE 0.9% 246 ML IV PRN (04:00)
[2017-02-25] MEDS: methylPREDNISolone SOD SUCC 125 MG/2 ML IVPush SCH (04:00)
[2017-02-25] MEDS ORDERED: SODIUM BICARB 8.4%, 50ML SYRINGE IVPush STA (04:13)
[2017-02-25] MEDS ORDERED: SODIUM BICARBONATE 8.4% 150 MEQ in DEXTROSE 5% 1,000 ML IV SCH (04:13)
[2017-02-25] MEDS: PHENYLEPHRINE 20 MG in SODIUM CHLORIDE 0.9% 248 ML IV SCH ×2 (05:22→05:58)
[2017-02-25] MEDS ORDERED: PROPOFOL 100 ML IV PRN (06:03)
[2017-02-25] MEDS ORDERED: methylPREDNISolone SOD SUCC 125 MG/2 ML IV SCH (06:30)
[2017-02-25] MEDS ORDERED: FLUCONAZOLE 200 MG/100 ML 100 ML IV SCH (06:30)
[2017-02-25] MEDS ORDERED: LIDOCAINE-MPF 1%, 2ML ENDO PRN (06:30)
[2017-02-25] MEDS: ALBUTEROL/IPRATROPIUM 2.5MG/0.5MG, 3 ML NPPB SCH (07:00)
[2017-02-25] MEDS ORDERED: PHENYLEPHRINE 40 MG in SODIUM CHLORIDE 0.9% 246 ML IV SCH (07:01)
[2017-02-25 07:15] LABS: ABG COLLECTION SITE RIGHT FEMORAL
== END 2017-02-25 10:55 | disposition expired | DRG 208 ==
LOC: ED 13:23 → EDIP 13:29 → ED 13:42 → 4EST 15:33 → CCU 02-25 03:03
PROVIDERS: ADMIT Internal Medicine; ATTEND Internal Medicine
PROC: 5A1935Z Respiratory Ventilation, Less than 24 Consecutive Hours (ICD-10-PCS; principal; 2017-02-25)
PROC: 0BH17EZ Insertion of Endotracheal Airway into Trachea, Via Natural or Artificial Opening (ICD-10-PCS; 2017-02-25)
PROC: 0TJB8ZZ Inspection of Bladder, Via Natural or Artificial Opening Endoscopic (ICD-10-PCS; 2017-02-25)
PROC: 0T9B70Z Drainage of Bladder with Drainage Device, Via Natural or Artificial Opening (ICD-10-PCS; 2017-02-25)
DX: J96.21 Acute and chronic respiratory failure with hypoxia (principal); E87.4 Mixed disorder of acid-base balance; N17.9 Acute kidney failure, unspecified; N39.0 Urinary tract infection, site not specified; I46.9 Cardiac arrest, cause unspecified; I25.10 Atherosclerotic heart disease of native coronary artery without angina pectoris; K21.9 Gastro-esophageal reflux disease without esophagitis; N13.5 Crossing vessel and stricture of ureter without hydronephrosis; E78.5 Hyperlipidemia, unspecified; R31.0 Gross hematuria; J45.909 Unspecified asthma, uncomplicated; R19.7 Diarrhea, unspecified; Z66 Do not resuscitate; Z95.5 Presence of coronary angioplasty implant and graft; Z88.1 Allergy status to other antibiotic agents; Z90.79 Acquired absence of other genital organ(s); Z87.891 Personal history of nicotine dependence; I25.2 Old myocardial infarction; Z85.46 Personal history of malignant neoplasm of prostate; J84.112 Idiopathic pulmonary fibrosis; C67.9 Malignant neoplasm of bladder, unspecified
CPT/HCPCS: 36415; 36600; 71010; 74176; 76770; 80053; 81001; 82803; 83605; 83690; 84145; 84478; 84484; 85025; 85610; 86677; 87040; 87086; 87106; 87324; 87493; 93005; 94002; 94003; 94640; 96374; J3370; J7070; J7620; J2370; J2930; J7030; J7040; J7050